=== PATIENT | female | born 1980 | race Caucasian/White ===

== ENCOUNTER → 2018-07-11 | Day surgery (SDC) | payer BC ==
[2018-07-07 11:05] VITALS: BMI 23.6
[~2018-07-11] MED LIST: DEXAMETHASONE SOD PHOSPHATE 10 MG/ML 1 ML VIAL IV ONE; KETOROLAC 30 MG/ML 1 ML VIAL ONE; LACTATED RINGERS 1,000 ML IV ONE; LACTATED RINGERS 1,000 ML IV SCH; LIDOCAINE 1% INJ 10MG/ML (20 ML MDV) ONE; MIDAZOLAM 2 MG/2 ML VIAL IV PRN; MIDAZOLAM 2 MG/2 ML VIAL ONE; ONDANSETRON 4 MG/2 ML VIAL IVP ONE; PROPOFOL 10 MG/ML 20 ML VIAL IV ONE; Pre Op ABX Message 1 EACH MISC MISCELLANE ONE; SCOPOLAMINE 1.5MG/72HR PATCH TRANSDERM ONE; fentaNYL (PF) 50 MCG/ML 2 ML AMP IV PRN; fentaNYL (PF) 50 MCG/ML 2 ML AMP ONE
--- NOTE | 2018-07-11 06:39 | P.HPOB ---
History of Present Illness H&P Date: 07/11/18 Chief Complaint: Menorrhagia 37 year old presents for D&C hysteroscopy and endometrial ablation with NovaSure. Review of Systems All systems: negative Constitutional: Denies chills, Denies fever Eyes: denies blurred vision, denies pain Ears, nose, mouth and throat: Denies headache, Denies sore throat Cardiovascular: Denies chest pain, Denies shortness of breath Respiratory: Denies cough Gastrointestinal: Denies abdominal pain, Denies diarrhea, Denies nausea, Denies vomiting Genitourinary: Denies dysuria, Denies hematuria Musculoskeletal: Denies myalgias Integumentary: Denies pruritus, Denies rash Neurological: Denies numbness, Denies weakness Psychiatric: Denies anxiety, Denies depression Endocrine: Denies fatigue, Denies weight change Past Medical History Additional Past Medical History / Comment(s): IRREGULAR MENSES AND THICKENING OF ENDOMETRIUM PER ULTRASOUND History of Any Multi-Drug Resistant Organisms: None Reported Past Surgical History: Section, Orthopedic Surgery Additional Past Surgical History / Comment(s): ORIF RT ANKLE Past Anesthesia/Blood Transfusion Reactions: No Reported Reaction Smoking Status: Former smoker - Past Family History Mother Family Medical History: No Reported History Medications and Allergies Home Medications Medication Instructions Recorded Confirmed Type No Known Home Medications 07/07/18 07/11/18 History Allergies Allergy/AdvReac Type Severity Reaction Status Date / Time No Known Allergies Allergy Verified 07/11/18 06:19 Exam Osteopathic Statement: *. No significant issues noted on an osteopathic structural exam other than those noted in the History and Physical/Consult. Heart: RRR Lungs: CTAB ABdomen: soft, nontender Extremeties: neg jeanne's Assessment and Plan (1) Menorrhagia Current Visit: Yes Status: Acute Code(s): N92.0 - EXCESSIVE AND FREQUENT MENSTRUATION WITH REGULAR CYCLE SNOMED Code(s): 787565341 Plan: 1. D&C hysteroscopy and endometrial ablation with NovaSure
[2018-07-11 08:15] VITALS: TEMP 97.6
--- NOTE | 2018-07-11 08:26 | P.OP ---
Date of Procedure: 07/11/18 Preoperative Diagnosis: Menorrhagia Postoperative Diagnosis: Menorrhagia Procedure(s) Performed: D&C hysteroscopy and endometrial ablation with NovaSure Anesthesia: MAC Surgeon: Daily Landeros Estimated Blood Loss (ml): 5 IV fluids (ml): 700 Urine output (ml): 3 Pathology: other (endometrial currettings) Condition: stable Disposition: PACU Operative Findings: cavity length 6cm, width 3cm, time of ablation 100seconds, power 99 Oseguera, adequate ablation after NovaSure Description of Procedure: Patient is taken the operating room where general anesthesia was obtained without difficulty. She was prepped and draped in normal sterile fashion dorsal lithotomy position, legs placed in the [employer] cane stirrups. Bladder was drained of all urine. Weighted speculum placed in the vagina and the anterior lip the cervix was grasped with serial tooth tenaculum. The uterus sounded to 9 cm and the cervix under 3 cm making the cavity length 6 cm. The cervix was dilated to #6 Hegar dilator. Hysteroscopy was then performed. Both ostia were visualized and there was a smooth contour of the uterus. Sharp curet was then gently used to obtain endometrial curettings. The NovaSure was introduced into the uterus with a cavity length of 6 cm, width 3 cm. after cavity assessment was passed, the time of ablation was 100 seconds at 99 W. Hysteroscopy was again performed and adequate ablation was noted. All instruments removed from the vagina. Patient tolerated the procedure well, sponge and instrument counts were correct 2 and she was taken to recovery in stable condition.
[2018-07-11 09:05] VITALS: RESP 18
[2018-07-11 09:22] VITALS: BP 118/75; PULSE 69
== END | disposition home or self-care (01) ==
LOC: OR 05:46
PROVIDERS: ATTEND Obstetrics & Gynecology
DX: N84.0 Polyp of corpus uteri (principal); N92.0 Excessive and frequent menstruation with regular cycle; Z87.891 Personal history of nicotine dependence
CPT/HCPCS: 58563; 81025; 88305; J2250; J1100; J2405; J2001; J3010; J1885; J2704